=== PATIENT | male | born 1965 | race American Indian/Alaskan Native ===

== ENCOUNTER 2017-04-11 11:16 | Day surgery (SDC) | payer OTHER ==
--- NOTE | 2017-04-11 10:43 | Short Stay Summary ---
Short Stay Documentation Date of service: 04/11/17 - History Principal diagnosis: renal failure Past Medical History: ESRD Past Surgical History: Other (permacath) - Allergies and Medications Current Medications: Allergies No Known Allergies Allergy (Unverified 04/10/17 10:05) Home Medications Medication Instructions Recorded Confirmed Last Taken Type Calcitriol [Rocaltrol] 1 cap PO DAILY 04/10/17 04/10/17 Unknown History Carvedilol 25 mg PO BID 04/10/17 04/10/17 Unknown History Folic Acid [Folvite] 1 mg PO DAILY 04/10/17 04/10/17 Unknown History Hydralazine HCl 50 mg PO TID 04/10/17 04/10/17 Unknown History Indomethacin Sr (Nf) [Indocin Sr 75 mg PO PRN PRN 04/10/17 04/10/17 Unknown History (Nf)] amLODIPine [Norvasc] 10 mg PO DAILY 04/10/17 04/10/17 Unknown History - Physical exam General appearance: no acute distress HEENT: PERRLA Lungs: Clear to auscultation Breasts: deferred Heart: Regular rate Gastrointestinal: normal Extremities: no ischemia, pulses intact - Brief post op/procedure progress note Date of procedure: 04/11/17 Pre-op diagnosis: ESRD Post-op diagnosis: same Procedure: Left brachiocephalic AV fistula Anesthesia: GETA Findings: left AV fistula Surgeon: TRAE HATCH Estimated blood loss: none Condition: stable - Hospital course Hospital course: outpatient fistula - Disposition Condition at discharge: Stable Disposition: DC-01 TO HOME OR SELFCARE Short Stay Discharge Plan Follow up with: MANUEL MEHTA MD [Primary Care Provider] - 7 Days
[~2017-04-11 11:16] MED LIST: ceFAZolin 2 GM in NACL 0.9% 100 ML IV ONE
[2017-04-11] MEDS ORDERED: ANCEF/STERILE WATER 2 GM/20 ML 2 GM/20 ML SYRINGE IV NR (12:00)
[2017-04-11] MEDS ORDERED: DILAUDID IV PRN (12:14)
[2017-04-11] MEDS ORDERED: ZOFRAN IV PRN (12:14)
[2017-04-11 12:17] LABS: Hematocrit 34.9 % (35.5-45.6); Hemoglobin 11.3 gm/dl (11.8-15.2)
[2017-04-11] MEDS ORDERED: NACL 0.9% 1000 ML 1,000 ML ONE (12:18)
--- NOTE | 2017-04-11 12:28 | Anesthesia Consultation ---
Anesthesia Consult and Med Hx Date of service: 04/11/17 - Airway Anesthetic Teeth Evaluation: Good ROM Head & Neck: Adequate Mental/Hyoid Distance: Adequate Mallampati Class: Class II - Pulmonary Exam CTA: Yes - Cardiac Exam Cardiac Exam: RRR - Pre-Operative Health Status ASA Pre-Surgery Classification: ASA3 Proposed Anesthetic Plan: General, MAC - Pulmonary Hx Smoking: No - Cardiovascular System Hx Hypertension: Yes Hx Coronary Artery Disease: Yes - Central Nervous System Hx Psychiatric Problems: No - Endocrine Hx End Stage Renal Disease: Yes - Other Systems Hx Cancer: No
--- NOTE | 2017-04-11 12:29 | Anesthesia Day of Surgery ---
Anesthesia Day of Surgery - Day of Surgery Patient Examined: Yes Patient H&P Reviewed: Yes Patient is NPO: Yes
[2017-04-11] MEDS ORDERED: DIPRIVAN 10 MG/ML IV ONE (12:59)
[2017-04-11] MEDS ORDERED: XYLOCAINE MPF 2% ONE (13:00)
[2017-04-11] MEDS ORDERED: PEPCID IV NR (13:00)
[2017-04-11] MEDS ORDERED: NACL 0.9% 1000 ML 1,000 ML IV SCH (13:00)
[2017-04-11] MEDS ORDERED: HEPARIN 10,000 UNITS/10 ML ONE (13:10)
[2017-04-11] MEDS ORDERED: NACL 0.9% 500 ML 500 ML ONE ×2 (13:10→15:15)
[2017-04-11] MEDS ORDERED: XYLOCAINE 1% 20 mL ONE (13:10)
[2017-04-11] MEDS ORDERED: MARCAINE 0.5% INFILTRATI ONE ×3 (13:10→14:21)
[2017-04-11] MEDS ORDERED: SUBLIMAZE ONE (14:05)
[2017-04-11] MEDS ORDERED: NACL 0.9% 100 ML ONE (14:14)
[2017-04-11] MEDS ORDERED: NEO SYNEPHRINE ONE (14:15)
[2017-04-11] MEDS ORDERED: ZOFRAN ONE (14:15)
[2017-04-11] MEDS ORDERED: NACL 0.9% IR ONE ×2 (14:20→14:22)
[2017-04-11] MEDS ORDERED: HEPARIN 10,000 UNITS/10 ML 2,000 UNIT in NACL 0.9% 500 ML 500 ML IR ONE (14:21)
[2017-04-11] MEDS ORDERED: ANCEF IR ONE (14:22)
[2017-04-11] MEDS ORDERED: ANCEF ONE (15:16)
--- NOTE | 2017-04-11 15:16 | Operative Report ---
Operative Report Operative Report: Preoperative diagnosis: End-stage renal disease Postoperative diagnosis: Same Procedure performed: Left brachiocephalic arteriovenous fistula: Surgeon: Adair Felix MD Slab Lifting Supervisor surgeon: None Anesthesia: Gen. anesthesia by LMA Estimated blood loss: Less than 50 mL Specimen: None Complications: None Indications for procedure: A 52-year-old male with end-stage renal disease, he is hemodialysis dependent, he requires access for long-term hemodialysis Procedure in detail: The patient was brought into the operating room suite #S1. The patient was identified as Feng Galeano. The left upper extremity was placed in a supine position. The left upper extremity was prepped with a Hibiclens prep and then ChloraPrep and draped in a sterile fashion. Gen. anesthesia was induced by LMA. A surgical timeout was then completed. A #15 blade was used to make an oblique incision in the left antecubital fossa, sharp and electrocautery dissection was then used to dissect through the skin and subcutaneous tissue. The median antecubital branch of the left cephalic vein was identified. Other vein was dissected proximally and distally. It was deemed adequate as a venous outflow tract. Next, the brachial artery was exposed beneath the fascia. The vessel was dissected proximally and distally. Atraumatic vascular loops were used for vascular control. The patient was then heparinized with 3000 units of heparin, after 5 minutes of circulation time, atraumatic vascular clamps were used to control the brachial artery. 11 blade was then used to make an arteriotomy. The cephalic vein was then mobilized medially it was gently dilated with heparin saline solution. An end-to-side vein to artery anastomosis was then completed with a 6-0 Prolene suture. Prior to completion of the anastomosis, the vein was irrigated copiously and back bled. The anastomosis was then completed. The anastomosis was hemostatic. A flow meter revealed flow within the fistula. The wound was then irrigated with antibiotics saline solution and closed in layers. The deep layers were closed with a 3-0 Vicryl suture. The skin was closed with Monocryl. 0.5% Marcaine was instilled for postoperative hemostasis. The patient tolerated procedure well. The left radial pulses palpable at the termination of the procedure. The sponge needle and initially counts were reported as correct at termination of procedure. Disposition: Home
--- NOTE | 2017-04-11 15:26 | Post Anesthesia Evaluation ---
- Post Anesthesia Evaluation Patient Participated: Yes Airway Patent: Yes Stable Respiratory Function: Yes Nausea/Vomiting: No Temp > 96.8F: Yes Pain Manageable: Yes Adequeate Hydration: Yes Anesthesia Complications: No
[2017-04-11 15:56] VITALS: BP 100/71
[2017-04-11] MEDS ORDERED: PERCOCET 5/325 PO SCH (17:00)
== END 2017-04-11 16:41 | disposition home or self-care (01) ==
LOC: OR 11:16
PROVIDERS: ATTEND Surgery Vascular Surgery
DX: I12.0 Hypertensive chronic kidney disease with stage 5 chronic kidney disease or end stage renal disease (principal); N18.6 End stage renal disease; M10.9 Gout, unspecified; I25.10 Atherosclerotic heart disease of native coronary artery without angina pectoris; Z99.2 Dependence on renal dialysis; Z79.899 Other long term (current) drug therapy
CPT/HCPCS: 36415; 36821; 84132; 85014; 85018; J0690; J1644; J2370; J2405; J2704; J3010; J7030; J7040

== ENCOUNTER 2017-05-09 11:34 | Day surgery (SDC) | payer OTHER ==
[2017-05-09] MEDS ORDERED: XYLOCAINE 2% INFILTRATI ONE (13:19)
[2017-05-09] MEDS ORDERED: HEPARIN/NS 5000 UNIT/500ML(CATH LAB) 1,000 ML IR ONE (13:19)
[2017-05-09] MEDS ORDERED: HEPARIN 10,000 UNITS/10 ML ONE (13:19)
[2017-05-09] MEDS ORDERED: VERSED ONE (13:24)
[2017-05-09] MEDS ORDERED: SUBLIMAZE ONE (13:25)
[2017-05-09] MEDS ORDERED: NACL 0.9% 250ML 250 ML ONE (13:30)
--- NOTE | 2017-05-09 13:45 | Short Stay Summary ---
Short Stay Documentation Date of service: 05/09/17 - History Principal diagnosis: Occluded left Av fistula H&P: obtained from office Past Medical History: dialysis Social history: no significant social history - Allergies and Medications Current Medications: Allergies No Known Allergies Allergy (Verified 04/11/17 11:14) Home Medications Medication Instructions Recorded Confirmed Last Taken Type Indomethacin Sr (Nf) [Indocin Sr 75 mg PO PRN PRN 04/10/17 05/09/17 04/10/17 20: 30 History (Nf)] oxyCODONE /ACETAMINOPHEN [Percocet 1 tab PO Q6HR PRN #30 tablet 04/11/17 Unknown Rx 5/325] - Physical exam General appearance: no acute distress, well-nourished Lungs: Clear to auscultation Heart: Regular rate Extremities: pulses intact (Left brachiocephalic fistula occluded) - Brief post op/procedure progress note Date of procedure: 05/09/17 Pre-op diagnosis: Occluded AV fistula Post-op diagnosis: same Procedure: Left AV fistulogram with angioplasty Anesthesia: local Findings: Fistula sclerotic, was not accessed Surgeon: TRAE HATCH Estimated blood loss: none Pathology: none Condition: stable - Disposition Condition at discharge: Stable Disposition: DC-01 TO HOME OR SELFCARE Short Stay Discharge Plan Follow up with: MANUEL MEHTA MD [Primary Care Provider] - 7 Days
[2017-05-09 14:40] VITALS: BP 128/72
--- NOTE | 2017-05-09 17:49 | Vascular Lab Report ---
MISCELLANEOUS VESSEL IDENTIFICATION: The arteriovenous access was identified in the left upper extremity and under real-time ultrasound guidance was cannulated. IMPRESSION: Successful ultrasound guided cannulation of the arteriovenous access site.
--- NOTE | 2017-07-24 13:50 | Cardiac Catherization Report ---
PREOPERATIVE DIAGNOSIS: Occluded left upper extremity AV fistula. POSTOPERATIVE DIAGNOSIS: Occluded left upper extremity AV fistula. PROCEDURES PERFORMED: 1. Introduction of catheter into AV fistula. 2. AV fistulogram. 3. LOG FEEDER left AV fistula. 4. Central venogram. SURGEON: Adair Felix MD ASSISTANTS: None. ANESTHESIA: Moderate sedation. ESTIMATED BLOOD LOSS: Minimal. SPECIMENS: None. COMPLICATIONS: None. INDICATION FOR PROCEDURE: The patient is a 52-year-old male, has end-stage renal disease, had creation of a left AV fistula, which occluded 3 weeks postoperatively. The patient presents for evaluation. OPERATIVE FINDINGS: The left brachiocephalic fistula was occluded. There is a long segment stenosis in the mid fistula. This was angioplastied with 4 mm x 4 cm [place] LOG FEEDER balloon. No central venous stenosis was noted. PROCEDURE IN DETAIL: The patient was brought into the cardiac catheterization suite. He was placed supine on the table. The left upper extremity was prepped with ChloraPrep and draped in a sterile fashion. A surgical pause was created. The correct patient and the correct site for surgery was identified. A 2% lidocaine was instilled at the antecubital fossa. A micropuncture needle was used to access the arterial end of the fistula. The micropuncture wire passed into the fistula. An AV fistulogram was completed through the dilator for the micropuncture. A 0.035 wire was used to cross the stenosis. The patient was heparinized with 3000 units of heparin. A 4 mm x 4 cm [place] LOG FEEDER balloon was then used to sequentially angioplasty of the fistula. The fistula was angioplastied at 10 atmospheres for 60 seconds. A central venogram revealed no central venous stenosis. The sheath was removed. The access site was closed with a Prolene. The patient tolerated the procedure well. The sponge, needles, and instrument counts were correct. JOB# [id number] PRUDENCE/AASHISH
== END 2017-05-09 14:40 | disposition home or self-care (01) ==
LOC: CATH 11:34
PROVIDERS: ATTEND Surgery Vascular Surgery
DX: T82.898A Other specified complication of vascular prosthetic devices, implants and grafts, initial encounter (principal); I12.0 Hypertensive chronic kidney disease with stage 5 chronic kidney disease or end stage renal disease; N18.6 End stage renal disease; M10.9 Gout, unspecified; Y83.2 Surgical operation with anastomosis, bypass or graft as the cause of abnormal reaction of the patient, or of later complication, without mention of misadventure at the time of the procedure
CPT/HCPCS: 36415; 36902; 76937; 84132; 99156; C1751; C1769; C1894; J1644; J2250; J3010; J7050; 36901

== ENCOUNTER 2017-05-23 11:29 | Day surgery (SDC) | payer OTHER ==
[2017-05-23] MEDS ORDERED: NACL BACTERIOSTATIC INFILTRATI ONE (12:06)
[2017-05-23] MEDS ORDERED: ceFAZolin 2 GM in NACL 0.9% 100 ML IV ONE (12:23)
--- NOTE | 2017-05-23 12:23 | Short Stay Summary ---
Short Stay Documentation Date of service: 05/23/17 Narrative H&P: patient requires access for long-term hemodialysis, the patient had a left brachial cephalic fistula which failed, he was unsuccessfully percutaneously revascularized. - History Past Medical History: ESRD Past Surgical History: no No surgical history (left brachiocephalic AV fistula) Social history: - Allergies and Medications Current Medications: Allergies No Known Allergies Allergy (Verified 05/17/17 16:15) Home Medications Medication Instructions Recorded Confirmed Last Taken Type Indomethacin Sr (Nf) [Indocin Sr 75 mg PO PRN PRN 04/10/17 05/17/17 04/10/17 20: 30 History (Nf)] oxyCODONE /ACETAMINOPHEN [Percocet 1 tab PO Q6HR PRN #30 tablet 04/11/17 Unknown Rx 5/325] Active Medications Famotidine (Pepcid) 20 mg IV PREOP NR Stop: 05/23/17 23:59 Sodium Chloride (Nacl 0.9% 1000 Ml) 1,000 mls @ 75 mls/hr IV DIRECT ANAND Midazolam HCl (Versed) 2 mg IV PREOP NR Stop: 05/23/17 23:59 - Physical exam General appearance: no acute distress Integumentary: no rash HEENT: Atraumatic Lungs: Clear to auscultation Heart: Regular rate Extremities: no ischemia (left brachiocephalic fistula has occluded) - Brief post op/procedure progress note Date of procedure: 05/23/17 Pre-op diagnosis: ESRD Post-op diagnosis: same Procedure: Left brachioaxillary AV graft Findings: Axillary vein small, but patent Surgeon: TRAE HATCH Estimated blood loss: none Pathology: none Condition: stable - Hospital course Hospital course: Outpatient graft - Disposition Condition at discharge: Good Disposition: DC-01 TO HOME OR SELFCARE Short Stay Discharge Plan Follow up with: MANUEL MEHTA MD [Primary Care Provider] - 7 Days
[2017-05-23 12:29] LABS: Hematocrit 35.2 % (35.5-45.6); Hemoglobin 11.4 gm/dl (11.8-15.2)
[2017-05-23] MEDS ORDERED: NACL 0.9% 1000 ML 1,000 ML IV SCH (13:00)
[2017-05-23] MEDS ORDERED: ANCEF/STERILE WATER 2 GM/20 ML 2 GM/20 ML SYRINGE IV NR (13:00)
[2017-05-23] MEDS ORDERED: VERSED IV NR (13:00)
[2017-05-23] MEDS ORDERED: PEPCID IV NR (13:00)
[2017-05-23] MEDS ORDERED: XYLOCAINE 1% 20 mL ONE (13:09)
[2017-05-23] MEDS ORDERED: ANCEF ONE (13:10)
[2017-05-23] MEDS ORDERED: THROMBIN (BOVINE) TP ONE (13:10)
[2017-05-23] MEDS ORDERED: GELFOAM POWDER 1GM MM ONE (13:10)
[2017-05-23] MEDS ORDERED: MARCAINE 0.5% 0 ML INFILTRATI ONE (13:10)
[2017-05-23] MEDS ORDERED: GELFOAM TP ONE (13:10)
[2017-05-23] MEDS ORDERED: NACL 0.9% 500 ML 500 ML ONE (13:10)
[2017-05-23] MEDS ORDERED: HEPARIN 10,000 UNITS/10 ML ONE (13:13)
[2017-05-23] MEDS ORDERED: MARCAINE 0.25% INFILTRATI ONE ×2 (13:30→14:07)
[2017-05-23] MEDS ORDERED: NACL 0.9% 500 ML IRRIGATION ONE (13:30)
[2017-05-23] MEDS ORDERED: NACL 0.9% IR ONE (13:30)
[2017-05-23] MEDS ORDERED: HEPARIN 10,000 UNITS/10 ML IV ONE (13:30)
--- NOTE | 2017-05-23 13:39 | Anesthesia Consultation ---
Anesthesia Consult and Med Hx - Airway Anesthetic Teeth Evaluation: Good ROM Head & Neck: Adequate Mental/Hyoid Distance: Adequate Mallampati Class: Class II Intubation Access Assessment: Probably Good - Pulmonary Exam CTA: Yes - Cardiac Exam Cardiac Exam: RRR - Pre-Operative Health Status ASA Pre-Surgery Classification: ASA3 Proposed Anesthetic Plan: General - Pre-Anesthesia Comment Pre-Anesthesia Comments: 52y M with h/o ESRD (// HD schedule), HTN, who presents for AVF revision. - Pulmonary Hx Smoking: No Hx Asthma: No COPD: No - Cardiovascular System Hx Hypertension: Yes (Hx) Hx Coronary Artery Disease: Yes Hx Heart Attack/AMI: No (good functional capacity (>4 METS)) - Central Nervous System Hx Seizures: No CVA: No Hx Psychiatric Problems: No - Endocrine Hx End Stage Renal Disease: Yes Hx Liver Disease: No Hx Insulin Dependent Diabetes: No Hx Non-Insulin Dependent Diabetes: No - Other Systems Hx Cancer: No Hx Obesity: Yes
--- NOTE | 2017-05-23 13:40 | Anesthesia Day of Surgery ---
Anesthesia Day of Surgery - Day of Surgery Patient Examined: Yes Patient H&P Reviewed: Yes Patient is NPO: Yes Beta Blockers: No Cardiac Clearance: Yes Pulmonary Clearance: Yes Selwyn's Test: N/A
[2017-05-23] MEDS ORDERED: DILAUDID ONE (13:42)
[2017-05-23] MEDS ORDERED: DIPRIVAN 10 MG/ML IV ONE (13:42)
[2017-05-23] MEDS ORDERED: XYLOCAINE MPF 2% ONE (13:47)
[2017-05-23] MEDS ORDERED: ZOFRAN ONE (14:50)
--- NOTE | 2017-05-23 15:34 | Operative Report ---
Operative Report Operative Report: Preoperative diagnosis: End-stage renal disease, status post failed brachiocephalic fistula Postoperative diagnosis: Same Procedure performed: Left brachioaxillary AV [id number] Surgeon: Adair Felix M.D. Asst.: None Anesthesia: Gen. anesthesia by LMA Estimated blood loss: None Blood transfusion: None Specimen: None Complications: None Indications for procedure: 52-year-old male with end-stage renal disease, he is currently dialyzed through a tunneled hemodialysis catheter. The patient had a previous creation of a left brachiocephalic fistula, the fistula failed 4 weeks after creation. He presents for AV graft. Operative findings: The axillary vein was extremely diminutive, beyond the junction of the basilic vein measured approximately 3-4 mm, however was noted to be patent. Procedure in detail: The patient was brought into the operative suite. The correct patient and the correct site for surgery was identified. General anesthesia was induced by LMA. The tape was positioned appropriately. The left upper extremity was then prepped with a core prepped and draped in sterile fashion. 0.25% Marcaine was instilled at the axillary hairline, a #10 blade was used to incise through the skin and subcutaneous tissue. Electrocautery was used to isolate the axillary vein. The axillary vein measured 3-4 mm, however it was noted to be patent. At this point it was deemed an adequate outflow vessel. Incision was in the bicipital groove above the elbow, sharp and he left cautery dissection was used to dissect through the skin and subcutaneous tissue the brachial artery was encircled with vessel loops. A 7 mm bovine Artegraft was rinsed and prepared by the usual beef breaker's directions. After appropriate rinsing, the graft was marked for orientation. A Dea-Wick tunneler was then used to create a subcutaneous tunnel. The patient was heparinized with 3000 units of heparin. After 5 minutes of circulation time, the brachial artery was controlled with atraumatic vascular clamps and 11 blade was used to make an arteriotomy. An end-to-side anastomosis was created graft to artery. After completion of the anastomosis, the graft was clamped and flow was restored to the hand. Next, the axillary vein was controlled with atraumatic vascular clamps and 11 blade was used to make a venotomy it was lengthened with Spencer scissors. An end-to-side graft to vein anastomosis was completed with a 6-0 Prolene suture, prior to completion of the anastomosis the graft was irrigated and flushed. The vein was back bled and anastomosis was completed. Flow was allowed through the graft. A flowmeter was used to confirm antegrade flow into the graft. The anastomosis were hemostatic and the wounds were irrigated with antibiotic saline solution. The deep layers was closed with a 3-0 Vicryl and the skin was closed with a 4-0 Monocryl. The skin was closed wit Dermaflex. The patient has a palpable left radial pulse at the termination procedure. The sponge and needles and instrument counts are correct. Disposition: Home
[2017-05-23] MEDS ORDERED: NEO SYNEPHRINE/NS Syringe(OR USE) IV ONE (15:44)
--- NOTE | 2017-05-23 16:40 | Post Anesthesia Evaluation ---
- Post Anesthesia Evaluation Patient Participated: Yes Airway Patent: Yes Stable Respiratory Function: Yes Nausea/Vomiting: No Temp > 96.8F: Yes Pain Manageable: Yes Adequeate Hydration: Yes Anesthesia Complications: No Block Receding Appropriately: Not Applicable Patient on Ventilator: No
[2017-05-23 17:26] VITALS: BP 119/72
== END 2017-05-23 17:10 | disposition home or self-care (01) ==
LOC: OR 11:29
PROVIDERS: ATTEND Surgery Vascular Surgery
DX: T82.898A Other specified complication of vascular prosthetic devices, implants and grafts, initial encounter (principal); M10.9 Gout, unspecified; I12.0 Hypertensive chronic kidney disease with stage 5 chronic kidney disease or end stage renal disease; N18.6 End stage renal disease; I25.10 Atherosclerotic heart disease of native coronary artery without angina pectoris; E66.9 Obesity, unspecified; Z68.35 Body mass index [BMI] 35.0-35.9, adult; Y83.2 Surgical operation with anastomosis, bypass or graft as the cause of abnormal reaction of the patient, or of later complication, without mention of misadventure at the time of the procedure
CPT/HCPCS: 36415; 36830; 84132; 85014; 85018; A4649; C1768; J0690; J1170; J1644; J2370; J2405; J2704; J7030; J7040

== ENCOUNTER 2017-07-04 10:01 | Day surgery (SDC) | payer OTHER ==
[2017-07-04] MEDS ORDERED: HEPARIN/NS 5000 UNIT/500ML(CATH LAB) 500 ML IR ONE (13:44)
[2017-07-04] MEDS ORDERED: NACL 0.9% 500 ML 500 ML ONE (13:45)
[2017-07-04] MEDS ORDERED: XYLOCAINE 2% INFILTRATI ONE (13:45)
--- NOTE | 2017-07-04 13:51 | Short Stay Summary ---
Short Stay Documentation Date of service: 07/04/17 - Allergies and Medications Current Medications: Allergies No Known Allergies Allergy (Verified 05/17/17 16:15) Home Medications Medication Instructions Recorded Confirmed Last Taken Type Indomethacin Sr (Nf) [Indocin Sr 75 mg PO PRN PRN 04/10/17 05/17/17 04/10/17 20: 30 History (Nf)] HYDROcodone/ACETAMINOPHEN 2 each PO Q6HR PRN #30 tablet 05/23/17 Unknown Rx [Verdrocet 2.5-325 mg TAB] Sevelamer Carbonate 800 mg PO AC 05/23/17 05/23/17 05/22/17 History Sucroferric Oxyhydroxide [Velphoro] 500 mg PO AC 05/23/17 05/23/17 05/22/17 History - Brief post op/procedure progress note Date of procedure: 07/04/17 Pre-op diagnosis: Occluded left AV graft Post-op diagnosis: same Procedure: Declot left Av graft Anesthesia: local Findings: Stenosis at venous outflow tract Surgeon: TRAE HATCH Estimated blood loss: none Pathology: none Condition: stable - Hospital course Hospital course: Outpatient graft declot - Disposition Condition at discharge: Stable Disposition: DC-01 TO HOME OR SELFCARE Short Stay Discharge Plan Follow up with: MANUEL MEHTA MD [Primary Care Provider] - 7 Days
[2017-07-04] MEDS: SUBLIMAZE ONE ×2 (13:53→14:11)
[2017-07-04] MEDS: VERSED ONE ×2 (13:53→14:11)
[2017-07-04] MEDS ORDERED: CATHFLO ONE (13:59)
[2017-07-04] MEDS ORDERED: HEPARIN 10,000 UNITS/10 ML ONE (13:59)
[2017-07-04] MEDS ORDERED: WATER FOR INJ (PF) 10 ML ONE (14:02)
[2017-07-04 15:27] VITALS: BP 129/80
--- NOTE | 2017-07-24 14:00 | Cardiac Catherization Report ---
PREOPERATIVE DIAGNOSIS: Occluded left upper arm AV graft. POSTOPERATIVE DIAGNOSIS: Occluded left upper arm AV graft. PROCEDURES PERFORMED: 1. Introduction of catheter into AV graft x 2. 2. AV fistulogram and central venogram. 3. Mechanical thrombectomy of left arm AV graft. 4. Thrombolysis left AV graft. 5. Radiologic supervision and interpretation. 6. HEAT TREATER left AV graft venous. SURGEON: Adair Felix MD ASSISTANTS: None. ANESTHESIA: Moderate sedation. BLOOD LOSS: Minimal. SPECIMENS: None. COMPLICATIONS: None. INDICATION FOR PROCEDURE: The patient has an occluded left arm AV graft. OPERATIVE PROCEDURE: The patient was brought to the operating room, was given IV sedation. The left upper extremity was prepped with ChloraPrep and draped in sterile fashion. A surgical pause was completed. An 18-gauge needle was used to access the arterial and the venous end of the AV graft after local instillation of lidocaine. 0.035 J wires were passed through the arterial and venous end. A 6-[place] sheath was placed over the venous end. The patient was heparinized with 5000 units of heparin. A 0.035 wire over a vertebral catheter was used to access the central venous system and a central venogram was completed. Mechanical thrombectomy of the AV graft was completed with a #4 [place] catheter. the graft. An AV fistulogram and central venogram were then completed. There was stenosis at the venous end of approximately 80%. An 8 mm x 4 cm [place] HEAT TREATER balloon was then used to angioplasty the venous outflow tract stenosis. Mechanical thrombectomy graft was completed. A Glidewire was then passed through the arterial anastomosis and the Dailey catheter was used to pull the arterial plug and flow was restored through the graft. AV fistulogram revealed brisk flow through the graft without evidence of contrast extravasation. The catheters and wires were removed. The access sites were closed with 4-0 Prolene suture and draped sterilely. The patient tolerated the procedure well. The counts are correct. DISPOSITION: To home. JOB# [id number] LOIDAM/AASHISH
== END 2017-07-04 15:35 | disposition home or self-care (01) ==
LOC: CATHLABREC 10:01
PROVIDERS: ATTEND Surgery Vascular Surgery
DX: T82.898A Other specified complication of vascular prosthetic devices, implants and grafts, initial encounter (principal); I12.0 Hypertensive chronic kidney disease with stage 5 chronic kidney disease or end stage renal disease; N18.6 End stage renal disease; M10.9 Gout, unspecified; Y83.2 Surgical operation with anastomosis, bypass or graft as the cause of abnormal reaction of the patient, or of later complication, without mention of misadventure at the time of the procedure
CPT/HCPCS: 36415; 36905; 84132; 99156; 99157; C1725; C1751; C1757; C1769; C1894; J1644; J2250; J2997; J3010; J7040; Q9967

== ENCOUNTER 2020-03-09 16:58 | Emergency (ER) | payer MEDICARE, OTHER ==
--- NOTE | 2020-03-09 17:10 | Emergency Department Report ---
ED General Adult HPI - General Chief complaint: Medical Clearance Stated complaint: MISSED DIALYSIS Time Seen by Provider: 03/09/20 17:09 Source: patient Mode of arrival: Ambulatory Limitations: No Limitations - History of Present Illness Initial comments: 55-year-old -[place] male end-stage renal patient on dialysis 3 times per week missed his dialysis session today due to his session being given up by his doctor presents emergency department under the recommendation of Dr. Andersen to come to the ED to be dialyzed. Has no significant complaints following instructions of his of his doctor states he does not have any chest pain shortness of breath fever chills or sweats. - Related Data Home Medications Medication Instructions Recorded Confirmed Last Taken Indomethacin Sr (Nf) [Indocin Sr 75 mg PO PRN PRN 04/10/17 05/17/17 04/10/17 20:30 (Nf)] Sevelamer Carbonate 800 mg PO AC 05/23/17 05/23/17 05/22/17 Sucroferric Oxyhydroxide(Nf) 500 mg PO AC 05/23/17 05/23/17 05/22/17 [Velphoro] Previous Rx's Medication Instructions Recorded Last Taken Type HYDROcodone/ACETAMINOPHEN 2 each PO Q6HR PRN #30 tablet 05/23/17 Unknown Rx [Verdrocet 2.5-325 mg TAB] Allergies Allergy/AdvReac Type Severity Reaction Status Date / Time No Known Allergies Allergy Verified 03/09/20 16:59 ED Review of Systems ROS: Stated complaint: MISSED DIALYSIS Other details as noted in HPI Comment: All other systems reviewed and negative ED Past Medical Hx - Past Medical History Hx Hypertension: Yes (Hx) Hx Heart Attack/AMI: No (good functional capacity (>4 METS)) Hx Liver Disease: No Hx Arthritis: Yes Hx Seizures: No Hx Asthma: No Hx COPD: No - Social History Smoking Status: Never Smoker - Medications Home Medications: Home Medications Medication Instructions Recorded Confirmed Last Taken Type Indomethacin Sr (Nf) [Indocin Sr 75 mg PO PRN PRN 04/10/17 05/17/17 04/10/17 20:30 History (Nf)] HYDROcodone/ACETAMINOPHEN 2 each PO Q6HR PRN #30 tablet 05/23/17 Unknown Rx [Verdrocet 2.5-325 mg TAB] Sevelamer Carbonate 800 mg PO AC 05/23/17 05/23/17 05/22/17 History Sucroferric Oxyhydroxide(Nf) 500 mg PO AC 05/23/17 05/23/17 05/22/17 History [Velphoro] ED Physical Exam - General Limitations: No Limitations General appearance: alert, in no apparent distress - Head Head exam: Present: atraumatic, normocephalic - Eye Eye exam: Present: normal appearance - ENT ENT exam: Present: mucous membranes moist - Neck Neck exam: Present: normal inspection - Respiratory Respiratory exam: Present: normal lung sounds bilaterally. Absent: respiratory distress - Cardiovascular Cardiovascular Exam: Present: regular rate, normal rhythm. Absent: systolic murmur, diastolic murmur, rubs, gallop - GI/Abdominal GI/Abdominal exam: Present: soft, normal bowel sounds - Rectal Rectal exam: Present: deferred - Extremities Exam Extremities exam: Present: normal inspection - Back Exam Back exam: Present: normal inspection - Neurological Exam Neurological exam: Present: alert, oriented X3 - Psychiatric Psychiatric exam: Present: normal affect, normal mood - Skin Skin exam: Present: warm, dry, intact, normal color. Absent: rash ED Course Vital Signs 03/09/20 03/09/20 17:03 18:49 Temperature 98.0 F 98.4 F Pulse Rate 101 H 102 H Respiratory 22 20 Rate Blood Pressure 153/88 Blood Pressure 168/104 [Right] O2 Sat by Pulse 92 95 Oximetry ED Medical Decision Making - Lab Data Result diagrams: 03/09/20 17:40 03/09/20 17:40 - Medical Decision Making 54-year-old male end-stage renal disease presents emerged department seeking dialysis. His chemistries were normal as well as stable vital signs with a a oxygen saturation of 96% on room air and stable/normal chemistry. He is alert and oriented he is ambulatory speaks in full sentences appears to be full of strength and jovial no limitations at current. Critical care attestation.: If time is entered above; I have spent that time in minutes in the direct care of this critically ill patient, excluding procedure time. ED Disposition Clinical Impression: ESRD (end stage renal disease) on dialysis Disposition: DC-01 TO HOME OR SELFCARE Is pt being admited?: No Does the pt Need Aspirin: No Condition: Stable Instructions: Dialysis Additional Instructions: Currently your chemistry is normal with a stable sodium potassium chloride with no indication for emergent dialysis at current. Your vital signs are stable with a normal oxygen saturation status. It is recommended that you get back on track with your Sunday dialysis and to touch base with your reading interventionist for further options for treatment. Referrals: JEFE JACOBS MD [Primary Care Provider] - 3-5 Days
[2020-03-09 17:56] LABS: Basophils % (Auto) 0.3 % (0.0-1.8); Eosinophils # (Auto) 0.9 K/mm3 (0.0-0.4); Eosinophils % (Auto) 6.6 % (0.0-4.3); Hematocrit 31.9 % (35.5-45.6); Hemoglobin 10.2 gm/dl (11.8-15.2); Lymphocytes % (Auto) 14.2 % (13.4-35.0); Mean Corpuscular HGB Conc 32 % (32-34); Mean Corpuscular Volume 85 fl (84-94); Monocytes # (Auto) 2.3 K/mm3 (0.0-0.8); Platelet Count 314 K/mm3 (140-440); Red Blood Count 3.73 M/mm3 (3.65-5.03); Red Cell Distribution Width 17.6 % (13.2-15.2)
[2020-03-09 18:17] LABS: Calcium 8.7 mg/dL (8.4-10.2)
[2020-03-09 18:50] VITALS: BP 168/104
== END 2020-03-09 20:05 | disposition home or self-care (01) ==
LOC: ED 16:58
DX: I12.0 Hypertensive chronic kidney disease with stage 5 chronic kidney disease or end stage renal disease (principal); N18.6 End stage renal disease; Z99.2 Dependence on renal dialysis; M19.91 Primary osteoarthritis, unspecified site; Z79.899 Other long term (current) drug therapy
CPT/HCPCS: 36415; 80048; 85025